=== PATIENT | male | born 1950 ===

== ENCOUNTER → 2021-04-06 | Outpatient (CLI) | payer OTHER ==
[2021-04-06 15:34] LABS: BASOPHILS ABSOLUTE AUTO 0.06 K/mm3 (0.00-0.23); BASOPHILS PERCENT AUTO 1 % (0-2); EOSINOPHILS ABSOLUTE AUTO 0.05 K/mm3 (0.00-0.68); EOSINOPHILS PERCENT AUTO 1 % (0-6); Hematocrit 40.9 % (37.0-53.0); Hemoglobin 13.9 g/dL (13.5-17.5); IMMATURE GRAN ABSOLUTE AUTO 0.01 K/mm3 (0.00-0.10); IMMATURE GRAN PERCENT AUTO 0 % (0-1); LYMPHOCYTES ABSOLUTE AUTO 1.26 K/mm3 (0.84-5.20); LYMPHOCYTES PERCENT AUTO 30 % (21-46); MONOCYTES ABSOLUTE AUTO 0.55 K/mm3 (0.16-1.47); MONOCYTES PERCENT AUTO 13 % (4-13); Mean Corpuscular HGB 34.6 pg (26.0-34.0); Mean Corpuscular Volume 102 fL (80-100); Mean Platelet Volume 11.4 fL (9.1-12.4); NEUTROPHILS ABSOLUTE AUTO 2.28 K/mm3 (1.96-9.15); NEUTROPHILS PERCENT AUTO 54 % (41-73); Platelet Count 188 K/mm3 (150-400); RDW Standard Deviation 48.7 fL (35.1-46.3); Red Blood Cell Count 4.02 M/mm3 (4.30-5.90); White Blood Cell Count 4.21 K/mm3 (4.00-11.30)
[2021-04-06 16:39] LABS: Alanine Aminotransfer (ALT/SGP 42 U/L (12-78); Albumin, Blood 3.6 g/dL (3.4-5.0); Albumin/Globulin Ratio 0.8 (0.8-1.8); Alk Phos 50 U/L (50-136); Anion Gap 9 mmol/L (6-16); Aspartate Aminotrans (AST/SGOT 39 U/L (12-37); Bilirubin, Total 0.4 mg/dL (0.1-1.0); Blood Urea Nitrogen 14 mg/dL (8-24); Bun/Creatinine Ratio 17.5 (12.0-20.0); CO2, Blood 24 mmol/L (21-32); Calcium, Blood 8.7 mg/dL (8.5-10.1); Chloride, Blood 110 mmol/L (98-108); Globulin, Blood 4.3 g/dL (2.2-4.0); Glomerular Filtration Rate >60 (60-); Glucose, Blood 170 mg/dL (70-99); Potassium, Blood 3.6 mmol/L (3.5-5.5); Sodium, Blood 143 mmol/L (136-145); Total Protein, Blood 7.9 g/dL (6.4-8.2)
== END | disposition home or self-care (01) ==
LOC: LAB 09:05 → LAB SHORT 09:05
PROVIDERS: Physician Assistant
DX: F10.10 Alcohol abuse, uncomplicated (principal); K92.1 Melena
CPT/HCPCS: 80053; 85025

== ENCOUNTER → 2021-10-08 | Outpatient (CLI) | payer OTHER ==
[2021-10-08 15:09] LABS: BASOPHILS ABSOLUTE AUTO 0.06 K/mm3 (0.00-0.23); BASOPHILS PERCENT AUTO 1 % (0-2); EOSINOPHILS ABSOLUTE AUTO 0.05 K/mm3 (0.00-0.68); EOSINOPHILS PERCENT AUTO 1 % (0-6); Hematocrit 42.6 % (37.0-53.0); Hemoglobin 14.5 g/dL (13.5-17.5); IMMATURE GRAN ABSOLUTE AUTO 0.01 K/mm3 (0.00-0.10); IMMATURE GRAN PERCENT AUTO 0 % (0-1); LYMPHOCYTES ABSOLUTE AUTO 1.99 K/mm3 (0.84-5.20); LYMPHOCYTES PERCENT AUTO 35 % (21-46); MONOCYTES ABSOLUTE AUTO 0.67 K/mm3 (0.16-1.47); MONOCYTES PERCENT AUTO 12 % (4-13); Mean Corpuscular Volume 100 fL (80-100); Mean Platelet Volume 10.8 fL (9.1-12.4); NEUTROPHILS ABSOLUTE AUTO 2.88 K/mm3 (1.96-9.15); NEUTROPHILS PERCENT AUTO 51 % (41-73); Platelet Count 196 K/mm3 (150-400); RDW Coefficient Variation 12.9 % (11.7-14.2); RDW Standard Deviation 47.6 fL (35.1-46.3); Red Blood Cell Count 4.27 M/mm3 (4.30-5.90); White Blood Cell Count 5.66 K/mm3 (4.00-11.30)
[2021-10-08 15:37] LABS: Alanine Aminotransfer (ALT/SGP 31 U/L (12-78); Albumin, Blood 3.7 g/dL (3.4-5.0); Albumin/Globulin Ratio 0.9 (0.8-1.8); Alk Phos 54 U/L (50-136); Anion Gap 10 mmol/L (6-16); Aspartate Aminotrans (AST/SGOT 40 U/L (12-37); Blood Urea Nitrogen 11 mg/dL (8-24); Bun/Creatinine Ratio 14.6 (12.0-20.0); CHOL/HDL RATIO 2.7; CO2, Blood 24 mmol/L (21-32); Calcium, Blood 8.3 mg/dL (8.5-10.1); Chloride, Blood 105 mmol/L (98-108); Cholesterol 222 mg/dL (50-200); Creatinine, Blood 0.76 mg/dL (0.60-1.20); Globulin, Blood 3.9 g/dL (2.2-4.0); Glomerular Filtration Rate >60 (60-); Glucose, Blood 124 mg/dL (70-99); HDL Cholesterol 82 mg/dL (>39); LDL/HDL RATIO 1.5; Low Density Lipoprotein Chol 125 mg/dL (0-110); Potassium, Blood 3.3 mmol/L (3.5-5.5); Sodium, Blood 139 mmol/L (136-145); Total Protein, Blood 7.6 g/dL (6.4-8.2); Triglycerides 76 mg/dL (30-160); Very Low Density Lipoprot Chol 15 mg/dL (6-32)
== END | disposition home or self-care (01) ==
LOC: LAB SHORT 10:18
PROVIDERS: Physician Assistant
DX: I47.1 Supraventricular tachycardia (principal); F10.10 Alcohol abuse, uncomplicated; R73.03 Prediabetes
CPT/HCPCS: 80053; 80061; 83036; 84443; 85025

== ENCOUNTER → 2023-01-07 | Outpatient (CLI) | payer OTHER ==
[2023-01-11 15:11] LABS: VARICELLA ZOSTER IGG 3417 index (Immune >165)
== END | disposition home or self-care (01) ==
LOC: LAB SHORT 11:20 → LAB 11:20
PROVIDERS: Nurse Practitioner Family
DX: R21 Rash and other nonspecific skin eruption (principal)
CPT/HCPCS: 86787

== ENCOUNTER 2024-03-05 08:51 | Observation (INO) | payer OTHER ==
[~2024-03-05] VITALS: Ht 185.4 cm; Wt 112.0 kg
[2024-03-05] MEDS ORDERED: Simvastatin40 MG PO (09:02)
[2024-03-05] MEDS ORDERED: OZEMPIC0.25 MG/02 SQ (09:02)
[2024-03-05] MEDS ORDERED: METO100ER PO (09:02)
[2024-03-05] MEDS ORDERED: OMEP20ER PO (09:02)
[2024-03-05] MEDS ORDERED: SILDENAFIL CITR20 M1 PO (09:03)
[2024-03-05] MEDS ORDERED: Pantoprazole Sodium 40 MG Injection IV ONE (09:15)
[2024-03-05] MEDS ORDERED: NS 1,000 ML IV SCH ×2 (09:15→12:40)
[2024-03-05 09:34] LABS: BASOPHILS ABSOLUTE AUTO 0.05 K/mm3 (0.00-0.23); BASOPHILS PERCENT AUTO 1 % (0-2); EOSINOPHILS ABSOLUTE AUTO 0.09 K/mm3 (0.00-0.68); EOSINOPHILS PERCENT AUTO 1 % (0-6); Hematocrit 36.1 % (37.0-53.0); Hemoglobin 12.3 g/dL (13.5-17.5); IMMATURE GRAN ABSOLUTE AUTO 0.03 K/mm3 (0.00-0.10); IMMATURE GRAN PERCENT AUTO 0 % (0-1); LYMPHOCYTES ABSOLUTE AUTO 2.51 K/mm3 (0.84-5.20); LYMPHOCYTES PERCENT AUTO 36 % (21-46); MONOCYTES PERCENT AUTO 13 % (4-13); Mean Corpuscular HGB 34.9 pg (26.0-34.0); Mean Corpuscular HGB Conc 34.1 g/dL (31.5-36.5); Mean Corpuscular Volume 103 fL (80-100); Mean Platelet Volume 11.1 fL (9.1-12.4); NEUTROPHILS ABSOLUTE AUTO 3.35 K/mm3 (1.96-9.15); NEUTROPHILS PERCENT AUTO 48 % (41-73); Platelet Count 155 K/mm3 (150-400); RDW Coefficient Variation 12.1 % (11.7-14.2); RDW Standard Deviation 45.4 fL (35.1-46.3); Red Blood Cell Count 3.52 M/mm3 (4.30-5.90); White Blood Cell Count 6.93 K/mm3 (4.00-11.30)
[2024-03-05 09:52] LABS: Albumin, Blood 3.6 g/dL (3.4-5.0); Bilirubin, Total 0.6 mg/dL (0.1-1.0); Bun/Creatinine Ratio 27.3 (12.0-20.0); Calcium, Blood 8.8 mg/dL (8.5-10.1); Creatinine, Blood 0.66 mg/dL (0.60-1.20); Globulin, Blood 3.5 g/dL (2.2-4.0); Potassium, Blood 4.1 mmol/L (3.5-5.5); Total Protein, Blood 7.1 g/dL (6.4-8.2)
[2024-03-05 10:00] LABS: International Normalized Ratio 0.98; Prothrombin Time Results 10.5 Sec (9.7-11.5)
[2024-03-05] MEDS ORDERED: ChlordiazePOXIDE 25 MG Cap PO PRN (10:55)
[2024-03-05] MEDS ORDERED: Acetaminophen 650 MG Supp PR PRN (10:55)
[2024-03-05 12:55] VITALS: BP 140/90
[2024-03-05 16:32] VITALS: BP 115/83
--- NOTE | 2024-03-05 16:40 | NUR ---
PT HAS BEEN AOX4 AND COOEPERATIVE OF CARE. NO SIGNS CURRENTLY OF ETOH WITHDRAWL. PT HAS BEEN INDEPENDENT IN ROOM AND CALLS APPROPRIATELY. PT HAS REPORTED ANOTHER BM MAROON IN COLOR. NO DISTRESS NOTED WILL CONTINUE TO MONITOR.
[2024-03-05 18:24] LABS: Hemoglobin 11.5 g/dL (13.5-17.5)
[2024-03-05] MEDS ORDERED: Famotidine 20 MG Tab PO SCH (21:00)
[2024-03-05] MEDS ORDERED: Atorvastatin 10 MG Tab PO SCH (21:00)
[2024-03-05 21:25] VITALS: BP 115/78
--- NOTE | 2024-03-06 00:01 | NUR ---
DIET CHANGE TO ICE CHIPS AND WATER AT MIDNIGHT, WILL START GO LYTELY IN THE AM 0600 AM. PT AWARE. CALL LIGHT IN REACH
--- NOTE | 2024-03-06 03:15 | NUR ---
ROOFING LABORER SUMMARY VSS. ALERT AND ORIENTED X 4. DENIED PAIN. HERE FOR HERMATOCHEZIA, NO NOTED RECTAL BLEEDING THIS SHIFT. HX ETOH USE, DENIED DRINKING ETOH FOR PAST 24 HRS. CIWAS DONE ABOUT Q 4 HRS, REMAIN ZERO S/S. SCHEDULED FOR COLONOSCOPY LATER TODAY. ON WATER AND ICE CHIPS PO SINCE MIDNIGHT AND WILL BEGIN GO LYTELY AT 0600, THEN NPO AT 1100 LATER FOR PROCEDURE. HAS BEEN RESTING QUIETLY WITH FEW INTERRUPTIONS. CALL LIGHT IN REACH, RAILS UP X 2 AND BED IN LOW POSITION FOR SAFETY. ABLE TO REPOSITION SELF IN BED WITHOUT ASSIST. UP AD RAÚL. WILL CONTINUE TO MONITOR.
[2024-03-06 04:43] VITALS: BP 115/71
[2024-03-06 05:09] LABS: Hematocrit 33.9 % (37.0-53.0); Hemoglobin 11.6 g/dL (13.5-17.5); Mean Corpuscular HGB 35.5 pg (26.0-34.0); Mean Corpuscular HGB Conc 34.2 g/dL (31.5-36.5); Mean Corpuscular Volume 104 fL (80-100); Mean Platelet Volume 11.3 fL (9.1-12.4); Platelet Count 152 K/mm3 (150-400); RDW Coefficient Variation 12.3 % (11.7-14.2); RDW Standard Deviation 47.1 fL (35.1-46.3); Red Blood Cell Count 3.27 M/mm3 (4.30-5.90); White Blood Cell Count 6.95 K/mm3 (4.00-11.30)
[2024-03-06 05:38] LABS: Bun/Creatinine Ratio 20.2 (12.0-20.0); Calcium, Blood 8.5 mg/dL (8.5-10.1); Creatinine, Blood 0.69 mg/dL (0.60-1.20); Potassium, Blood 3.8 mmol/L (3.5-5.5)
[2024-03-06] MEDS ORDERED: Peg/Electrolytes 4,000 ML BTL PO ONE (06:00)
[2024-03-06] MEDS ORDERED: Omeprazole 20 MG CapCR PO SCH (06:00)
[2024-03-06 07:51] VITALS: BP 154/96
[2024-03-06] MEDS ORDERED: Multivitamins 1 Tab PO SCH (09:00)
[2024-03-06] MEDS ORDERED: Thiamine HCl 100 MG Tab PO SCH (09:00)
[2024-03-06] MEDS ORDERED: Metoprolol Succinate 50 MG TABCR PO SCH (09:00)
[2024-03-06] MEDS ORDERED: Sod Phosphate/Sod Biphosphate 132 ML BTL PR ONE ×2 (12:15)
--- NOTE | 2024-03-06 12:15 | NUR ---
CALLED DR KIMBROUGH, STOOL LSTILL SOME GREEN PCS. ORDERS X2 FLEETS ENEMA NOW
--- NOTE | 2024-03-06 14:23 | NUR ---
OUT AT 1423 FOR SCOPE
[2024-03-06] MEDS ORDERED: Lactated Ringer's 1,000 ML IV SCH (14:25)
[2024-03-06 14:27] VITALS: BP 130/82
--- NOTE | 2024-03-06 14:35 | NUR ---
PT HAS 20G IV TO LEFT FOREARM THAT FLUSHES WELL AND FLOWS TO GRAVITY.
--- NOTE | 2024-03-06 14:38 | NUR ---
PT BROUGHT FROM FLOOR TO DAY SURGERY FOR PROCEDURE. History, Chart, Medications and Allergies reviewed before start of procedure. Lungs clear T/O to Auscultation. Patient confirms NPO status and agrees with scheduled surgery. Pre-Op teaching done. Pt verbalizes understanding. PT BELONGINGS LEFT IN PT PERSONAL ROOM ON MEDICAL FLOOR.
--- NOTE | 2024-03-06 14:52 | NUR ---
PROCEDURE CANCELLED BY DR KIMBROUGH AND DR MUNOZ DUE TO PT LAST DOSE OF OZEMPIC ON Tuesday03/03/24. PT AND DR KIMBROUGH DISCUSSING DETAILS OF RESCHEDULING. PT AGREEABLE TO THIS PLAN. WILL TRANSPORT PT BACK TO MEDICAL FLOOR.
--- NOTE | 2024-03-06 15:19 | NUR ---
per dr muniz, cant do scope as took ozempic in last week. he okay to d/c and will call dr condon and notify pt back to room. no po vitals as not put under anastesia
--- NOTE | 2024-03-06 15:19 | NUR ---
PT TRANSPORTED BACK TO MEDICAL FLOOR. REPORT GIVEN TO MUSTAPHA LAUREANO RN. PT GIVEN HANDOUT WITH RESCHEDULED DATE, TIME AND ADDRESS TO DR FRANCOIS OFFICE. DR KIMBROUGH ALSO PROVIDED PT A WORK NOTE. PT AGREEABLE WITH PLAN.
--- NOTE | 2024-03-06 16:25 | NUR ---
DISCHARGE REIVEWED WITH PT. IV PULLED INTACT. TELE REMOVED. PKT VERBALIZED UNDERSTANDING MEDS AND INST. PT CALLED . SHE ON WAY. I WALKED PT TO DOOR AT 1422
== END 2024-03-06 16:31 | disposition home or self-care (01) ==
LOC: ER 08:51 → MEDS 08:52
PROVIDERS: Emergency Medicine; ADMIT Internal Medicine
DX: K92.1 Melena (principal); E88.810 Metabolic syndrome; F10.20 Alcohol dependence, uncomplicated; Z79.899 Other long term (current) drug therapy; Z87.891 Personal history of nicotine dependence
CPT/HCPCS: 36415; 80048; 80053; 85014; 85018; 85025; 85027; 85610; 85730; 86850; 86900; 86901; 96361; 96374; 96375; 96376; 99285-25; A9270; C9113; G0378; J7030; J7120

== ENCOUNTER 2024-03-12 11:36 | Day surgery (SDC) | payer OTHER ==
[~2024-03-12] VITALS: Ht 185.4 cm; Wt 110.0 kg
[~2024-03-12 11:36] MED LIST: Lactated Ringer's 1,000 ML IV ONE; METO100ER PO; OMEP20ER PO; OZEMPIC0.25 MG/02 SQ; SILDENAFIL CITR20 M1 PO; Simvastatin40 MG PO; propofoL 50 ML IV ONE
[2024-03-12] MEDS ORDERED: Lactated Ringer's 1,000 ML IV ONE (12:40)
[2024-03-12] MEDS ORDERED: propofoL 50 ML IV ONE (13:39)
[2024-03-12 14:30] VITALS: BP 127/76
== END 2024-03-12 14:16 | disposition home or self-care (01) ==
LOC: ORSCSDS 11:36
PROVIDERS: Internal Medicine Gastroenterology
PROC: 0DBM8ZX Excision of Descending Colon, Via Natural or Artificial Opening Endoscopic, Diagnostic (ICD-10-PCS; principal; 2024-03-12 12:45)
PROC: 0DBL8ZX Excision of Transverse Colon, Via Natural or Artificial Opening Endoscopic, Diagnostic (ICD-10-PCS; principal; 2024-03-12 12:45)
DX: K62.5 Hemorrhage of anus and rectum (principal); D12.3 Benign neoplasm of transverse colon; D12.4 Benign neoplasm of descending colon; K63.89 Other specified diseases of intestine; Z86.010 Personal history of colon polyps; K64.8 Other hemorrhoids; K57.30 Diverticulosis of large intestine without perforation or abscess without bleeding; K76.0 Fatty (change of) liver, not elsewhere classified; E88.810 Metabolic syndrome; F41.0 Panic disorder [episodic paroxysmal anxiety]; Z87.891 Personal history of nicotine dependence; Z79.899 Other long term (current) drug therapy
CPT/HCPCS: 82947; 88305; J2704; J7120

== ENCOUNTER → 2025-04-15 | Outpatient (CLI) | payer OTHER ==
[~2025-04-15] MED LIST changes: -Lactated Ringer's 1,000 ML IV ONE; -propofoL 50 ML IV ONE
[2025-04-15 11:23] LABS: BASOPHILS ABSOLUTE AUTO 0.05 K/mm3 (0.00-0.23); BASOPHILS PERCENT AUTO 1 % (0-2); EOSINOPHILS ABSOLUTE AUTO 0.07 K/mm3 (0.00-0.68); EOSINOPHILS PERCENT AUTO 1 % (0-6); Hematocrit 42.7 % (37.0-53.0); Hemoglobin 14.6 g/dL (13.5-17.5); IMMATURE GRAN ABSOLUTE AUTO 0.02 K/mm3 (0.00-0.10); IMMATURE GRAN PERCENT AUTO 0 % (0-1); LYMPHOCYTES ABSOLUTE AUTO 2.01 K/mm3 (0.84-5.20); LYMPHOCYTES PERCENT AUTO 31 % (21-46); MONOCYTES ABSOLUTE AUTO 0.80 K/mm3 (0.16-1.47); MONOCYTES PERCENT AUTO 13 % (4-13); Mean Corpuscular HGB Conc 34.2 g/dL (31.5-36.5); Mean Corpuscular Volume 104 fL (80-100); NEUTROPHILS ABSOLUTE AUTO 3.45 K/mm3 (1.96-9.15); NEUTROPHILS PERCENT AUTO 54 % (41-73); NRBC ABSOLUTE 0.00 K/mm3 (0.00-0.02); NRBC Auto 0.0 /100 WBC (0.0-0.2); Platelet Count 203 K/mm3 (150-400); RDW Coefficient Variation 11.9 % (11.7-14.2); RDW Standard Deviation 46.1 fL (35.1-46.3)
[2025-04-15 12:21] LABS: Alanine Aminotransfer (ALT/SGP 34 U/L (12-78); Albumin, Blood 3.4 g/dL (3.4-5.0); Albumin/Globulin Ratio 0.8 (0.8-1.8); Anion Gap 10 mmol/L (3-11); Aspartate Aminotrans (AST/SGOT 46 U/L (12-37); Bilirubin, Total 0.9 mg/dL (0.1-1.0); Blood Urea Nitrogen 12 mg/dL (8-24); CHOL/HDL RATIO 3.7; CO2, Blood 27 mmol/L (21-32); Calcium, Blood 8.7 mg/dL (8.5-10.1); Chloride, Blood 106 mmol/L (98-108); Cholesterol 213 mg/dL (50-200); Creatinine, Blood 0.59 mg/dL (0.60-1.20); Globulin, Blood 4.1 g/dL (2.2-4.0); Glucose, Blood 164 mg/dL (70-99); HDL Cholesterol 58 mg/dL (>39); LDL/HDL RATIO 2.4; Low Density Lipoprotein Chol 140 mg/dL (0-110); Potassium, Blood 4.0 mmol/L (3.5-5.5); Sodium, Blood 139 mmol/L (136-145); Total Protein, Blood 7.5 g/dL (6.4-8.2); Triglycerides 76 mg/dL (30-160); Very Low Density Lipoprot Chol 15 mg/dL (6-32)
== END ==
LOC: LAB SHORT 11:03 → LAB 11:03
PROVIDERS: Nurse Practitioner Family
DX: R73.03 Prediabetes (principal); E78.5 Hyperlipidemia, unspecified; I10 Essential (primary) hypertension
CPT/HCPCS: 80053; 80061; 83036; 85025